=== PATIENT | male | born 1985 | race Caucasian/White ===

== ENCOUNTER 2017-12-13 04:45 | Emergency (ER) | payer SELFPAY ==
[~2017-12-13] VITALS: Ht 170.2 cm; Wt 90.7 kg
[2017-12-13 04:49] VITALS: BP 135/93
--- NOTE | 2017-12-13 04:51 | NUR ---
TO BED # 11, AMBULATORY, REPORT GIVEN TO GENE QUIÑONES
--- NOTE | 2017-12-13 04:51 | NUR ---
PATIENT PRESENTS TO ED WITH NUMBNESS TO RIGHT FOREARM AND RIGHT 3RD/4TH DIDGITS X1 DAY. PT STATES NUMBNESS IS INTERMITTENT AND BILATERAL EXTREMITIES GET COLD WHEN NUMBNESS IS PRESENT. PT STATES 0/10 PAIN. 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 CAPREFILL <3 SECONDS ON BILATERAL EXTREMITIES. DENIES N/V/D; SKIN IS PINK/WARM/DRY; AAOX4 WITH EVEN AND STEADY GAIT; LUNGS CLEAR BL; HR EVEN AND REGULAR; PT DENIES ANY FEVER, CP, SOB, OR COUGH AT THIS TIME; VSS; PATIENT POSITIONED FOR COMFORT; HOB ELEVATED; BEDRAILS UP X2; BED DOWN. ER MD MADE AWARE OF PT STATUS. CONTINUE TO MONITOR.
[2017-12-13] MEDS ORDERED: DEXAMETHASONE 10 MG/ML VIAL IM ONE (05:15)
[2017-12-13] MEDS ORDERED: KETOROLAC 15 MG/ML VIAL IM ONE (05:15)
--- NOTE | 2017-12-13 05:36 | NUR ---
PT RETURNED FROM CT. VSS. CONTINUE TO MONITOR.
[2017-12-13 06:57] VITALS: BP 135/93
--- NOTE | 2017-12-13 06:57 | NUR ---
Patient discharged with v/s stable. Written and verbal after care instructions given and explained. Patient alert, oriented and verbalized understanding of instructions. Ambulatory with steady gait. All questions addressed prior to discharge. ID band removed. Patient advised to follow up with PMD. Rx of Flexeril and Ibuprofen given. Patient educated on indication of medication including possible reaction and side effects. Opportunity to ask questions provided and answered.
== END 2017-12-13 06:57 | disposition home or self-care (01) ==
LOC: MED 04:45
DX: M50.81 Other cervical disc disorders, high cervical region (principal); R20.0 Anesthesia of skin
CPT/HCPCS: 72125; 96372; 99284; J1100; J1885